=== PATIENT | male | born 1950 | race African-American/Black ===

== ENCOUNTER → 2016-11-16 | Day surgery (SDC) | payer OTHER ==
[~2016-11-16] MED LIST: LIDOCAINE HCL 1% PF 30 ML VIAL ONE
[2016-11-16 13:40] VITALS: BP 136/80; PULSE 69; RESP 20; TEMP 97.2; O2SAT 99
[2016-11-16 14:20] VITALS: BP 126/80; PULSE 70; RESP 24; O2SAT 99
[2016-11-16 14:35] VITALS: BP 124/78; PULSE 71; RESP 20; O2SAT 98
[2016-11-16 14:40] VITALS: BP 149/82; PULSE 67; RESP 18; TEMP 98.6; O2SAT 96
--- NOTE | 2016-11-16 16:04 | RADRPT ---
EXAM DATE/TIME: 11/16/2016 13:31 [place] COMPARISON: No previous studies available for comparison. EXTERNAL COMPARISON: [facility], CT SOFT TISSUE NECH W/ CONTRAST, Sep 10 2016. INDICATIONS : Right enlarged neck lymph node. MEDICAL HISTORY : Right enlarged neck lymph node. SURGICAL HISTORY : None. ENCOUNTER: Initial ACUITY: > 1 yr PAIN SCORE: 3/10 LOCATION: Right neck ORGAN: Right lymph node SPECIMENS: Five core specimen(s) submitted for pathologic evaluation. DEVICE: 20 gauge Temno needle Post procedure scanning reveals no hematoma or other complication. The possibility does exist that the tissue obtained will be non-diagnostic. If the sample is non-jose gnostic a repeat biopsy or surgical biopsy may need to be performed. TECHNIQUE: 1. Ultrasound guidance for needle biopsy. 2. Needle biopsy. The risks, benefits, and alternatives to ultrasound guided needle biopsy were explained to the patien t in detail including the risk of bleeding and infection. Written and verbal informed consent was ob tained. With the patient on the ultrasound table, images were obtained. Overlying skin was prepped and drape d in the usual sterile fashion and Lidocaine was utilized as a local anesthetic. A needle was advanced into the identified target and the number of specimens as above obtained and fuentes bmitted for pathologic evaluation. The patient tolerated the procedure well and left the ultrasound suite in stable condition. CONCLUSION: Uncomplicated ultrasound guided needle biopsy of the enlarged right neck lymph node. Pilo Doran MD on November 16, 2016 at 15:28 Board Certified Radiologist. This report was verified electronically.
== END | disposition home or self-care (01) ==
LOC: HRAD 12:38
PROVIDERS: ATTEND Surgery Trauma Surgery
DX: C96.9 Malignant neoplasm of lymphoid, hematopoietic and related tissue, unspecified (principal)
CPT/HCPCS: 38505; 76942; 88184; 88185; 88305; 88341; 88342